=== PATIENT | female | born 1955 | race Two or more races ===

== ENCOUNTER 2019-05-26 13:13 | Emergency (ER) | payer MEDICAID, OTHER ==
[~2019-05-26] VITALS: Ht 160 cm; Wt 64.9 kg
[2019-05-26] MEDS ORDERED: cloNIDine HCL 0.1 MG TAB PO ONE (15:15)
[2019-05-26 16:14] VITALS: BP 133/82
== END 2019-05-26 16:15 | disposition home or self-care (01) ==
LOC: ER 13:25
DX: I16.0 Hypertensive urgency (principal); E11.9 Type 2 diabetes mellitus without complications; E78.00 Pure hypercholesterolemia, unspecified; Z90.710 Acquired absence of both cervix and uterus